=== PATIENT | female | born 1980 | race American Indian/Alaskan Native ===

== ENCOUNTER 2017-06-21 06:33 | Emergency (ER) | payer SELFPAY ==
[2017-06-21 07:22] LABS: Basophils % (Auto) 0.7 % (0.0-1.8); Eosinophils % (Auto) 0.8 % (0.0-4.3); Hematocrit 35.5 % (30.3-42.9); Mean Corpuscular HGB Conc 34 % (30-34); Mean Corpuscular Hemoglobin 31 pg (28-32); Mean Corpuscular Volume 91 fl (79-97); Platelet Count 261 K/mm3 (140-440); Red Cell Distribution Width 14.6 % (13.2-15.2); White Blood Count 5.4 K/mm3 (4.5-11.0)
[2017-06-21 08:19] LABS: Bilirubin,Urine NEG (Negative); Blood,Urine MOD (Negative); Ketones,Urine NEG (Negative); Leukocyte Esterase,Urine NEG (Negative); Mucus,Urine FEW /HPF; Nitrite,Urine NEG (Negative); Protein,Urine <15 mg/dL mg/dL (Negative); Urobilinogen,Urine < 2.0 mg/dL (<2.0)
[2017-06-21] MEDS ORDERED: MOTRIN PO ONE (14:47)
[2017-06-21] MEDS ORDERED: ULTRAM PO ONE (14:47)
--- NOTE | 2017-06-21 18:32 | Ultrasound Report ---
FINAL REPORT PROCEDURE: US TRANSVAGINAL TECHNIQUE: Real-time transabdominal sonography in multiple planes of the pelvis was performed. The pelvic structures, especially the ovaries were not optimally visualized. Transvaginal sonography was then performed to better evaluate the structures and/or abnormalities described below with image documentation. CPT 16391 and 26975 HISTORY: irregular and heavy vag bleed, neg preg COMPARISON: No prior studies are available for comparison. FINDINGS: Uterus measures 13.2 cm in length. There is a fibroid in the right side of the uterine fundus and body measuring 7.5 x 6.5 x 6.7 cm. Endometrium is obscured. A few tiny nabothian cysts are seen. No free pelvic fluid is seen. Ovaries are not identified due to patient's size and bowel gas. IMPRESSION: 7.5 cm fibroid is seen in the right side of the uterine fundus. Study is otherwise limited, with nonvisualization of the endometrium and ovaries due to patient's size and bowel gas.
--- NOTE | 2017-06-21 18:32 | Ultrasound Report ---
FINAL REPORT PROCEDURE: US PELVIC COMPLETE TECHNIQUE: Real-time transabdominal sonography in multiple planes of the pelvis was performed. The pelvic structures, especially the ovaries were not optimally visualized. Transvaginal sonography was then performed to better evaluate the structures and/or abnormalities described below with image documentation. CPT 71107 and 25265 HISTORY: irregular and heavy vag bleed, neg preg COMPARISON: No prior studies are available for comparison. FINDINGS: Uterus measures 13.2 cm in length. There is a fibroid in the right side of the uterine fundus and body measuring 7.5 x 6.5 x 6.7 cm. Endometrium is obscured. A few tiny nabothian cysts are seen. No free pelvic fluid is seen. Ovaries are not identified due to patient's size and bowel gas. IMPRESSION: 7.5 cm fibroid is seen in the right side of the uterine fundus. Study is otherwise limited, with nonvisualization of the endometrium and ovaries due to patient's size and bowel gas.
--- NOTE | 2017-06-21 18:50 | Emergency Department Report ---
ED Female HPI - General Chief complaint: Vaginal Bleeding Stated complaint: GROIN AREA BLEEDING Time Seen by Provider: 06/21/17 14:31 Source: patient Mode of arrival: Ambulatory Limitations: No Limitations - History of Present Illness Initial comments: 37 year old female with history of anemia and hypertension improved with dieting years ago presents to the hospital [facility] complaints of irregular cycle since December 2015. Patient began having irregular vaginal bleeding since June 19 until now. Yesterday bleeding became heavier. Using 1 pad per hour. Patient apparently felt lightheaded and weak. No complaints of chest pain or shortness of breath. Intermittent suprapubic cramping as moderate is reported. Patient has not had ultrasounds and symptoms began - Related Data Previous Rx's Medication Instructions Recorded Last Taken Type Ibuprofen [Motrin] 800 mg PO Q8HR PRN #30 tablet 06/21/17 Unknown Rx medroxyPROGESTERone ACETATE 10 mg PO QDAY #7 tablet 06/21/17 Unknown Rx [Provera] traMADol [Ultram 50 MG tab] 50 mg PO Q6HR PRN #20 tablet 06/21/17 Unknown Rx Allergies Allergy/AdvReac Type Severity Reaction Status Date / Time Penicillins Allergy Anaphylaxis Verified 06/21/17 06:52 ED Review of Systems ROS: Stated complaint: GROIN AREA BLEEDING Other details as noted in HPI Comment: All other systems reviewed and negative Other: Constitutional: No fevers chills Eyes: No eye pain visual changes ENT: No ear pain or throat pain Neck: Denies pain Respiratory: Denies cough wheezing shortness of breath Cardiovascular: Denies chest pain, palpitations, syncope GI: Denies nausea, vomiting, diarrhea : Denies dysuria Musculoskeletal: Denies back pain, joint swelling Skin: Denies rash, lesions, erythema Neurologic: Denies headache, numbness, weakness Psychiatric: Denies suicidal ideation, hallucinations ED Past Medical Hx - Past Medical History Previous Medical History?: Yes Additional medical history: anemia, h/o HTN-resolved through diet appx 10yrs ago - Surgical History Past Surgical History?: No Additional Surgical History: "abscess size of football" 2001 - Social History Smoking Status: Never Smoker Substance Use Type: None - Medications Home Medications: Home Medications Medication Instructions Recorded Confirmed Last Taken Type Ibuprofen [Motrin] 800 mg PO Q8HR PRN #30 tablet 06/21/17 Unknown Rx medroxyPROGESTERone ACETATE 10 mg PO QDAY #7 tablet 06/21/17 Unknown Rx [Provera] traMADol [Ultram 50 MG tab] 50 mg PO Q6HR PRN #20 tablet 06/21/17 Unknown Rx ED Physical Exam - General Limitations: No Limitations - Other Other exam information: General: No limitations, patient is alert in no acute distress Head exam: Atraumatic, normocephalic Eyes exam: Normal appearance, pupils equal reactive to light, extraocular movements intact ENT: Moist mucous membrane, normal oropharynx Neck exam: Normal inspection, full range of motion, no meningismus nontender Respiratory exam: Clear to auscultation bilateral, no wheezes, rales, crackles Cardiovascular: Normal rate and rhythm, normal heart sounds Abdomen: Soft, nondistended, mild suprapubic tenderness, with normal bowel sounds, no rebound, or guarding Extremity: Full range of motion normal inspection no deformity Back: Normal Inspection, full range of motion, no tenderness Neurologic: Alert, oriented x3, cranial nerves intact, no motor or sensory deficit Psychiatric: normal affect, normal mood Skin: Warm, dry, intact ED Course Vital Signs 06/21/17 06/21/17 06/21/17 06:52 13:44 16:41 Temperature 98.5 F 98.3 F Pulse Rate 67 64 Respiratory 16 20 20 Rate Blood Pressure 160/87 Blood Pressure 147/72 [Left] O2 Sat by Pulse 98 97 Oximetry 06/21/17 17:35 Temperature Pulse Rate Respiratory 20 Rate Blood Pressure Blood Pressure [Left] O2 Sat by Pulse Oximetry - Reevaluation(s) Reevaluation #2: 06/21/17 18:51 Patient treated with Motrin and tramadol for pain ED Medical Decision Making - Lab Data Result diagrams: 06/21/17 07:10 Lab Results 06/21/17 06/21/17 06/21/17 Range/Units 07:10 07:10 07:57 WBC 5.4 (4.5-11.0) K/mm3 RBC 3.90 (3.65-5.03) M/mm3 Hgb 12.0 (10.1-14.3) gm/dl Hct 35.5 (30.3-42.9) % MCV 91 (79-97) fl MCH 31 (28-32) pg MCHC 34 (30-34) % RDW 14.6 (13.2-15.2) % Plt Count 261 (140-440) K/mm3 Lymph % (Auto) 31.0 (13.4-35.0) % [place] % (Auto) 9.3 H (0.0-7.3) % Eos % (Auto) 0.8 (0.0-4.3) % Baso % (Auto) 0.7 (0.0-1.8) % Lymph # 1.7 (1.2-5.4) K/mm3 [place] # 0.5 (0.0-0.8) K/mm3 Eos # 0.0 (0.0-0.4) K/mm3 Baso # 0.0 (0.0-0.1) K/mm3 Seg Neutrophils % 58.2 (40.0-70.0) % Seg Neutrophils # 3.2 (1.8-7.7) K/mm3 Urine Color Yellow (Yellow) Urine Turbidity Clear (Clear) Urine pH 6.0 (5.0-7.0) Ur Specific [place] 1.018 (1.003-1.030) Urine Protein <15 mg/dl (Negative) mg/dL Urine Glucose (UA) Neg (Negative) mg/dL Urine Ketones Neg (Negative) mg/dL Urine Blood Mod (Negative) Urine Nitrite Neg (Negative) Urine Bilirubin Neg (Negative) Urine Urobilinogen < 2.0 (<2.0) mg/dL Ur Leukocyte Esterase Neg (Negative) Urine WBC (Auto) 2.0 (0.0-6.0) /HPF Urine RBC (Auto) 2.0 (0.0-6.0) /HPF U Epithel Cells (Auto) 1.0 (0-13.0) /HPF Urine Mucus Few /HPF Urine HCG, Qual (Negative) Blood Type B POSITIVE Antibody Screen Negative 06/21/17 Range/Units 07:57 WBC (4.5-11.0) K/mm3 RBC (3.65-5.03) M/mm3 Hgb (10.1-14.3) gm/dl Hct (30.3-42.9) % MCV (79-97) fl MCH (28-32) pg MCHC (30-34) % RDW (13.2-15.2) % Plt Count (140-440) K/mm3 Lymph % (Auto) (13.4-35.0) % [place] % (Auto) (0.0-7.3) % Eos % (Auto) (0.0-4.3) % Baso % (Auto) (0.0-1.8) % Lymph # (1.2-5.4) K/mm3 [place] # (0.0-0.8) K/mm3 Eos # (0.0-0.4) K/mm3 Baso # (0.0-0.1) K/mm3 Seg Neutrophils % (40.0-70.0) % Seg Neutrophils # (1.8-7.7) K/mm3 Urine Color (Yellow) Urine Turbidity (Clear) Urine pH (5.0-7.0) Ur Specific [place] (1.003-1.030) Urine Protein (Negative) mg/dL Urine Glucose (UA) (Negative) mg/dL Urine Ketones (Negative) mg/dL Urine Blood (Negative) Urine Nitrite (Negative) Urine Bilirubin (Negative) Urine Urobilinogen (<2.0) mg/dL Ur Leukocyte Esterase (Negative) Urine WBC (Auto) (0.0-6.0) /HPF Urine RBC (Auto) (0.0-6.0) /HPF U Epithel Cells (Auto) (0-13.0) /HPF Urine Mucus /HPF Urine HCG, Qual Negative (Negative) Blood Type Antibody Screen - Radiology Data Radiology results: report reviewed Transvaginal/pelvic ultrasound: 7.5 cm fibroid is seen in the right side of the uterus fundus. Otherwise normal - Medical Decision Making test negative. H&H normal. Vital signs stable. Ultrasound positive for fibroid. Patient be placed on Provera for several days and encouraged to follow up with [facility] - Differential Diagnosis DUB, fibroids, , anemia Critical Care Time: No Critical care attestation.: If time is entered above; I have spent that time in minutes in the direct care of this critically ill patient, excluding procedure time. ED Disposition Clinical Impression: Fibroid, Menometrorrhagia Disposition: TO HOME OR SELFCARE Is pt being admited?: No Does the pt Need Aspirin: No Condition: Stable Instructions: Uterine Fibroids (ED), Dysfunctional Uterine Bleeding (ED) Additional Instructions: Take the medication as prescribed. Follow-up with the [facility] doctor provided with a [facility] doctor of your choice. Return if symptoms worsen. Take the copy of the ultrasound to your follow-up visit. Take multivitamins with iron. Prescriptions: Ibuprofen [Motrin] 800 mg PO Q8HR PRN #30 tablet PRN Reason: Pain medroxyPROGESTERone ACETATE [Provera] 10 mg PO QDAY #7 tablet traMADol [Ultram 50 MG tab] 50 mg PO Q6HR PRN #20 tablet PRN Reason: Pain Referrals: [facility] [Provider Group] - 3-5 Days [facility] [Provider Group] - 3-5 Days Forms: Work/School Release Form(ED) Time of Disposition: 18:54
[2017-06-21] MEDS ORDERED: NORCO 5/325 PO ONE (19:01)
[2017-06-21 19:49] VITALS: BP 131/63
== END 2017-06-21 19:50 | disposition home or self-care (01) ==
LOC: ED 06:33
DX: N92.1 Excessive and frequent menstruation with irregular cycle (principal); D28.2 Benign neoplasm of uterine tubes and ligaments; Z88.0 Allergy status to penicillin
CPT/HCPCS: 36415; 76830; 76856; 81001; 81025; 85025; 86850; 86900; 86901